=== PATIENT | female | born 1945 | race Caucasian/White ===

== ENCOUNTER → 2016-09-21 | Outpatient (CLI) | payer MEDICARE, OTHER ==
[~2016-09-21] MED LIST: ALPR.25T PO; AML5T PO; BETH50TA PO; BTH25T1 PO; BUPR150T9 PO; CEPH-507 PO; COLC0.6T7 PO; CYCL10TA45 PO; DABI150C PO; FLEC50TA3 PO; GABA100C PO; INDM25C PO; IPRA0.2S18 NEB; KCL20TCR PO; LEVA1.2523 NEB; LIRA0.6P SQ; LOSA100T8 PO; LSNP10T PO; METF500T4 PO; NEBI10TA PO; OMEP20CA6 PO; SCR1T1 PO; SERT50TA2 PO; SIMV10TA PO; SUCR1TAB29 PO; TRAM-25 PO; [UNRECOGNIZED DRUG - CODE] PO
--- NOTE | 2016-09-21 11:48 | Diagnostic Imaging Report ---
PROCEDURE: US Thyroid. TECHNIQUE: Multiple real-time grayscale images were obtained of the thyroid in various projections. INDICATION: Thyroid nodule. FINDINGS: Ultrasonography of thyroid gland reveals normal blood flow to both lobes. Right and left lobes measure 5.0 x 1.7 x 1.4 cm and 4.7 x 1.6 x 1.4 cm, respectively. There is a tiny calcification seen in the midportion of the right lobe with an approximately 0.7 cm hypoechoic nodule in the midportion of the left lobe which may represent cluster of cysts or complex cyst with internal septation. A 0.5 cm focus is seen in the midportion of the isthmus which may represent a nodule as well. This demonstrates no evidence of hyperemia or shadowing. IMPRESSION: No dominant mass identified. There is a complex nodule which may represent cluster of cysts or septated cyst in the midportion of the left lobe measuring 0.7 cm in diameter. There is also questionable 0.5 cm hypoechoic nodule in the isthmus. Followup ultrasound in 4 months is recommended to document ongoing stability. Dictated by: Dictated on workstation # [id number]
== END ==
LOC: RAD 10:33
PROVIDERS: ATTEND Otolaryngology
DX: E04.1 Nontoxic single thyroid nodule (principal)
CPT/HCPCS: 76536

== ENCOUNTER 2016-10-02 21:02 | Emergency (ER) | payer MEDICARE, OTHER ==
[~2016-10-02] VITALS: Ht 165.1 cm; Wt 87.3 kg
[2016-10-02] MEDS ORDERED: LEVO2TAB4 PO (21:25)
[2016-10-02] MEDS ORDERED: FRSM40T PO (21:25)
[2016-10-02] MEDS ORDERED: PRIM50TA PO (21:25)
[2016-10-02] MEDS ORDERED: ALLO100T PO (21:25)
[2016-10-02] MEDS ORDERED: KETOROLAC 60 MG/2 ML (TORADOL) VIAL IM ONE (21:35)
[2016-10-02 22:10] LABS: BASOPHILS % (AUTO) 0 % (0-2); EOSINOPHILS # (AUTO) 0.2 10^3uL; EOSINOPHILS % (AUTO) 5 % (0-4); LYMPHOCYTES # (AUTO) 0.8 X10^3; MEAN CORPUSCULAR HEMOGLOBIN 30.8 PG (26.0-34.0); MEAN CORPUSCULAR HGB CONC 33.9 g/dL (31.0-37.0); MEAN CORPUSCULAR VOLUME 91 FL (80-100); MONOCYTES # (AUTO) 0.4 X10^3; MONOCYTES % (AUTO) 10 % (3-11); NEUTROPHILS # (AUTO) 2.4 X10^3; NEUTROPHILS % (AUTO) 64 % (51-67); PLATELET COUNT 86 10^3uL (150-450); WHITE BLOOD COUNT 3.69 10^3uL (4.0-11.0)
[2016-10-02 22:54] LABS: ALBUMIN 3.4 g/dL (3.4-5.0); ALKALINE PHOSPHATASE 53 U/L (38-126); BUN/CREATININE RATIO 16 (10-20); CALCULATED IONIZED CALCIUM 4.1 mg/dL (3.8-4.6); TOTAL PROTEIN 6.1 g/dL (6.4-8.5)
[2016-10-02] MEDS ORDERED: ED- CYCLOBENZAPRINE 10 MG (FLEXERIL) 3 TABLETS/BTL PO ONE (23:30)
[2016-10-03 00:05] VITALS: BP 150/64
--- NOTE | 2016-10-03 00:09 | NUR ---
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
--- NOTE | 2016-10-03 08:02 | Diagnostic Imaging Report ---
INDICATION: Chest pain. COMPARISON: 07/25/2014. FINDINGS: A pacemaker device overlies the left chest. The lungs are clear although hyperexpanded. There is a calcified granuloma in the right lung base, chronic and benign. No effusion or pneumothorax. No failure pattern. IMPRESSION: Stable chronic findings. Dictated by: Dictated on workstation # [id number]
== END 2016-10-02 23:45 | disposition home or self-care (01) ==
LOC: ED 21:04
DX: M79.7 Fibromyalgia (principal); R07.9 Chest pain, unspecified; F41.9 Anxiety disorder, unspecified
CPT/HCPCS: 36415; 71020; 80053; 84484; 85025; 86140; 93005; 96372; 99283; A9270; J1885; 93010; 99284